=== PATIENT | male | born 1990 | race Caucasian/White ===

== ENCOUNTER → 2017-03-21 | Outpatient (CLI) | payer OTHER ==
--- NOTE | 2017-03-21 15:22 | REP ---
MAXILLOFACIAL CT WITHOUT CONTRAST: HISTORY: Septal deviation. Minimal mucosal thickening is present in the ethmoid, maxillary, sphenoid and right frontal sinuses. The left frontal sinus is clear. Mucosal thickening involves the left osteomeatal unit. The right osteomeatal unit is patent. The middle and inferior nasal turbinates are partially paradoxical. There is florina bullosa of the right middle nasal turbinate. There is moderate deviation of the nasal septum to the left. The nasal septum abuts the left middle and inferior nasal turbinates. The cribriform plate, medial santana of the orbits and optic canals are intact. The carotid canals form a segment of the posterolateral santana of the sphenoid sinus. IMPRESSION: Sinus mucosal thickening as described above. Signed by Wyatt Valdes MD 03/21/2017 04:02 P
== END ==
LOC: M RAD 14:31
PROVIDERS: ATTEND Otolaryngology
DX: J34.2 Deviated nasal septum (principal)

== ENCOUNTER 2017-05-18 09:32 | Day surgery (SDC) | payer OTHER ==
[2017-05-18] MEDS: LR 1,000 ML IV (10:13)
[2017-05-18] MEDS ORDERED: fentaNYL 100 MCG/2 ML INJECTION (J3010) As Ordered (11:24)
[2017-05-18] MEDS ORDERED: MIDAZOLAM INJ 2 MG/2 ML VIAL (J2250) As Ordered (11:24)
[2017-05-18] MEDS: LIDOCAINE 1% SDV INJ 30 ML VIAL As Ordered (12:04)
[2017-05-18] MEDS ORDERED: fentaNYL 250 MCG/5 ML INJECTION (J3010) As Ordered (12:18)
[2017-05-18] MEDS: OXYMETAZOLINE NASAL SPRAY (AFRIN) As Ordered (12:30)
[2017-05-18] MEDS: METHYLENE BLUE 0.5% (5MG/ML) 10 ML AMP (PROVAYBLUE)(Q9968 PER 1MG) As Ordered (12:30)
[2017-05-18] MEDS ORDERED: dexameTHASONE 4 MG/ML 1ML VIAL (J1100) As Ordered ×2 (12:30)
[2017-05-18] MEDS: LIDOCAINE W/EPINEPHRINE 1% 20ML VIAL As Ordered (12:30)
[2017-05-18] MEDS ORDERED: NEOSTIGMINE 10 MG/10 ML VIAL (J2710) As Ordered (12:31)
[2017-05-18] MEDS ORDERED: PROPOFOL 200 MG/20 ML VIAL As Ordered (12:31)
[2017-05-18] MEDS ORDERED: LIDOCAINE 2% INJ 100 MG/5 ML SDV (FOR ANES.) As Ordered (12:31)
[2017-05-18] MEDS ORDERED: GLYCOPYRROLATE INJ 0.2 MG/ML 2 ML VIAL As Ordered ×2 (12:31)
[2017-05-18] MEDS ORDERED: ROCURONIUM BROMIDE 50 MG/5 ML VIAL As Ordered (12:31)
[2017-05-18] MEDS ORDERED: METOCLOPRAMIDE INJ 10MG/2ML VIAL (J2765) As Ordered (12:32)
[2017-05-18] MEDS ORDERED: ONDANSETRON 4MG/2ML VIAL (J2405) As Ordered (12:32)
[2017-05-18] MEDS: SODIUM CHLORIDE 0.9% NASAL GEL 15MG (AYR) As Ordered (12:47)
[2017-05-18] MEDS ORDERED: DESFLURANE 240 ML INHALANT As Ordered (12:51)
[2017-05-18] MEDS: PERCOCET 5MG/325MG TAB PO ×2 (13:43→14:35)
[2017-05-18] MEDS ORDERED: METOCLOPRAMIDE INJ 10MG/2ML VIAL (J2765) IV (13:45)
[2017-05-18] MEDS ORDERED: fentaNYL 100 MCG/2 ML INJECTION (J3010) IV (13:45)
[2017-05-18] MEDS ORDERED: LR 1,000 ML IV (13:45)
[2017-05-18] MEDS ORDERED: HYDROmorphone HCL 1 MG/ML SYRINGE (J1170) IV (13:45)
[2017-05-18] MEDS ORDERED: ONDANSETRON 4MG/2ML VIAL (J2405) IV (13:45)
== END 2017-05-18 14:45 | disposition home or self-care (01) ==
LOC: M SDC 09:32
DX: J34.2 Deviated nasal septum (principal); J34.89 Other specified disorders of nose and nasal sinuses; Z87.81 Personal history of (healed) traumatic fracture
CPT/HCPCS: 30520